=== PATIENT | male | born 1940 | race Caucasian/White ===

== ENCOUNTER → 2017-12-13 | Outpatient (CLI) | payer OTHER ==
[~2017-12-13] MED LIST: AMIO200T42 PO; ASPI-621 PO; ATOR40TA PO; DOCU-131 PO; FURO-92 PO; HYDR-3245 PO; KRIL500C PO; LISI-420 PO; METO25TA35 PO; POTA20TA14 PO; TAMS-11 PO; UBID50TA3 PO; WARF-36 PO
== END | disposition home or self-care (01) ==
LOC: CFH 11:08
PROVIDERS: ATTEND Internal Medicine Cardiovascular Disease
DX: I07.1 Rheumatic tricuspid insufficiency (principal); I34.0 Nonrheumatic mitral (valve) insufficiency
CPT/HCPCS: 93306

== ENCOUNTER 2019-01-02 09:30 | Outpatient (CLI) | payer OTHER | END 2019-01-02 23:59 | disposition home or self-care (01) | LOC: CFH 09:30 | PROVIDERS: ATTEND Internal Medicine Cardiovascular Disease | DX: I08.3 Combined rheumatic disorders of mitral, aortic and tricuspid valves (principal); I10 Essential (primary) hypertension; E78.5 Hyperlipidemia, unspecified | CPT/HCPCS: 93306 ==

== ENCOUNTER 2019-10-09 07:17 | Emergency (ER) | payer OTHER ==
[~2019-10-09] VITALS: Ht 167.6 cm; Wt 77.7 kg
[~2019-10-09 07:17] MED LIST changes: -ASPI-621 PO; +ASPI81TA45 PO
--- NOTE | 2019-10-09 07:35 | NUR ---
pt ambulated back to room with a smooth and steady gait, walked to and from restroom to collect urine sample. pt changed into gown, standing in room, pt P/W/D, states "standing is more comfortable", VSS, RESP WNL, speaking in FCS no SOB noted. WCTM.
--- NOTE | 2019-10-09 08:30 | NUR ---
Late Entry: Pt NAD, resting in gurney, call light within reach, P/W/D, RESP WNL, speakin FCS no SOB noted. Waiting for lab results. WCTM.
[2019-10-09 09:01] LABS: MICROSCOPIC AUTO
[2019-10-09 09:02] LABS: CULTURE INDICATED? NO
[2019-10-09 09:05] LABS: BASOPHILS # (AUTO) 0.02 x10^3/uL (0-0.1); BASOPHILS % (AUTO) 0 % (0-1); EOSINOPHILS # (AUTO) 0.03 x10^3/uL (0-0.4); EOSINOPHILS % (AUTO) 0 % (1-7); LYMPHOCYTES # (AUTO) 1.07 x10^3/uL (1-3.4); LYMPHOCYTES % (AUTO) 12 % (22-44); MD NO; MEAN CORPUSCULAR HEMOGLOBIN 32.8 pg (27.5-34.5); MEAN CORPUSCULAR HGB CONC 33.8 g/dL (33.2-36.2); MEAN CORPUSCULAR VOLUME 96.9 fL (81-97); MEAN PLATELET VOLUME 9.4 fL (7.4-10.4); MONOCYTES # (AUTO) 0.69 x10^3/uL (0.2-0.8); MONOCYTES % (AUTO) 8 % (2-9); NEUTROPHILS # (AUTO) 7.06 x10^3/uL (1.8-6.8); NEUTROPHILS % (AUTO) 80 % (42-75); PLATELET COUNT 179 x10^3/uL (130-400); RED BLOOD COUNT 5.11 x10^6/uL (4.38-5.82); RED CELL DISTRIBUTION WIDTH 13.7 % (9.4-14.8)
[2019-10-09 09:12] LABS: ALBUMIN 4.4 g/dL (3.4-5.0); ANION GAP 5 mmol/L (5-15); CALCIUM 9.6 mg/dL (8.5-10.1); CHLORIDE 109 mmol/L (98-107); CREATININE 1.36 mg/dL (0.7-1.3)
--- NOTE | 2019-10-09 09:44 | NUR ---
Patient given discharge instructions and they have confirmed that they understand the instructions. Patient ambulatory with steady gait. NAD, P/W/D, FCS no SOB. Denies additional questions at this time.
[2019-10-09 09:46] VITALS: BP 142/62
== END 2019-10-09 09:48 | disposition home or self-care (01) ==
LOC: ED 08:55
DX: N40.1 Benign prostatic hyperplasia with lower urinary tract symptoms (principal); R33.8 Other retention of urine; R10.9 Unspecified abdominal pain; I10 Essential (primary) hypertension
CPT/HCPCS: 36415; 51702; 80048; 81001; 82040; 85025; 99284

== ENCOUNTER → 2019-10-24 | Outpatient (CLI) | payer OTHER ==
[~2019-10-24] MED LIST changes: +OMNIPAQUE 350 MG/ML, 150 ML BOTTLE ONE
== END | disposition home or self-care (01) ==
LOC: CFH 12:33
PROVIDERS: ATTEND Physician Assistant Surgical
DX: N40.0 Benign prostatic hyperplasia without lower urinary tract symptoms (principal); R31.21 Asymptomatic microscopic hematuria
CPT/HCPCS: 74178; Q9967

== ENCOUNTER → 2020-02-26 | Outpatient (CLI) | payer OTHER ==
[~2020-02-26] MED LIST changes: -OMNIPAQUE 350 MG/ML, 150 ML BOTTLE ONE
== END | disposition home or self-care (01) ==
LOC: CFH 10:42
PROVIDERS: ATTEND Internal Medicine Cardiovascular Disease
DX: I08.8 Other rheumatic multiple valve diseases (principal)
CPT/HCPCS: 93306

== ENCOUNTER → 2020-03-23 | Outpatient (CLI) | payer OTHER ==
[2020-03-23 12:11] LABS: MICROSCOPIC NOT IND
[2020-03-23 12:14] LABS: BASOPHILS % (AUTO) 1 % (0-1); EOSINOPHILS % (AUTO) 1 % (1-7); LYMPHOCYTES % (AUTO) 25 % (22-44); MEAN CORPUSCULAR HGB CONC 33.1 g/dL (33.2-36.2); MEAN PLATELET VOLUME 9.4 fL (7.4-10.4); MONOCYTES % (AUTO) 9 % (2-9); NEUTROPHILS % (AUTO) 64 % (42-75); PLATELET COUNT 172 x10^3/uL (130-400); RED BLOOD COUNT 5.09 x10^6/uL (4.38-5.82); RED CELL DISTRIBUTION WIDTH 13.8 % (9.4-14.8)
[2020-03-23 12:16] LABS: MD NO
[2020-03-23 12:20] LABS: PROTHROMBIN TIME 10.3 Seconds (9.6-11.5)
[2020-03-23 12:23] LABS: ALBUMIN 3.9 g/dL (3.4-5.0); ANION GAP 2 mmol/L (5-15); CALCIUM 9.4 mg/dL (8.5-10.1); CHLORIDE 108 mmol/L (98-107)
[2020-03-23 12:29] LABS: ALANINE AMINOTRANSFERASE 41 U/L (12-78); ALKALINE PHOSPHATASE 57 U/L (45-117); BILIRUBIN,TOTAL 0.7 mg/dL (0.2-1.0); CREATININE 1.25 mg/dL (0.7-1.3); TOTAL PROTEIN 7.6 g/dL (6.4-8.2)
== END | disposition home or self-care (01) ==
LOC: STAR 10:14
PROVIDERS: ATTEND Urology
DX: Z01.818 Encounter for other preprocedural examination (principal); N40.1 Benign prostatic hyperplasia with lower urinary tract symptoms; R39.15 Urgency of urination
CPT/HCPCS: 36415; 80053; 81003; 85025; 85610; 85730; 87086; 93005

== ENCOUNTER 2020-04-01 12:26 | Inpatient (IN) | payer MEDICARE, OTHER ==
[~2020-04-01] VITALS: Ht 167.6 cm; Wt 86.3 kg
[2020-04-01] MEDS ORDERED: CHLORHEXIDINE 15 ML UDC MM ONE (13:00)
[2020-04-01] MEDS ORDERED: LACTATED RINGERS 1,000 ML IV SCH (13:00)
[2020-04-01] MEDS ORDERED: BUPIVACAINE/PF 0.25% ONE (13:39)
[2020-04-01] MEDS ORDERED: EPINEPHRINE 1 MG/ML, 1ML ONE (13:39)
[2020-04-01] MEDS ORDERED: OPIUM/BELLADONNA SUPP.RECT 16.2-60 MG ONE (13:39)
[2020-04-01] MEDS ORDERED: FENTANYL PF 100 MCG/2ML ONE ×4 (13:43→18:38)
[2020-04-01] MEDS ORDERED: OXYcodone 5 MG/5 ML ORAL.SOL UDC PO PRN (16:00)
[2020-04-01] MEDS ORDERED: HYDROmorphone 1 MG/ML, 1ML INJ IVPush PRN (16:00)
[2020-04-01] MEDS ORDERED: HYDROcodone/APAP 7.5-325MG/15ML UDC PO PRN (16:00)
[2020-04-01] MEDS ORDERED: PROMETHAZINE 25 MG/ML, 1ML IVPush PRN (16:00)
[2020-04-01] MEDS ORDERED: MEPERIDINE/PF 25MG/0.5ML IVPush PRN (16:00)
[2020-04-01] MEDS ORDERED: FUROSEMIDE 20 MG/2 ML ONE (16:44)
[2020-04-01] MEDS ORDERED: SUCCINYLCHOLINE 20 MG/ML, 10ML ONE (17:37)
[2020-04-01] MEDS ORDERED: ROCURONIUM 10MG/ML,5ML ONE (17:37)
[2020-04-01] MEDS ORDERED: NEOSTIGMINE 1 MG/ML, 10ML ONE (17:37)
[2020-04-01] MEDS ORDERED: PROPOFOL 10 MG/ML, 20ML ONE (17:37)
[2020-04-01] MEDS ORDERED: GLYCOPYRROLATE 0.2MG/1ML, 5ML ONE (17:37)
[2020-04-01] MEDS ORDERED: ONDANSETRON 2MG/ML, 2ML ONE (17:37)
[2020-04-01] MEDS ORDERED: DEXAMETHASONE 4 MG/ML, 1ML ONE (17:37)
[2020-04-01] MEDS ORDERED: CEFAZOLIN 1,000 MG ONE (17:37)
[2020-04-01] MEDS ORDERED: ACETAMINOPHEN 650 MG/20.3 ML UDC ONE (18:28)
[2020-04-01] MEDS ORDERED: OXYcodone 5 MG/5 ML ORAL.SOL UDC ONE (18:28)
[2020-04-01] MEDS: FENTANYL PF 100 MCG/2ML IV PRN ×4 (18:30→19:20)
[2020-04-01] MEDS ORDERED: MIDAZOLAM 1 MG/ML, 2ML ONE (18:38)
[2020-04-01] MEDS ORDERED: MIDAZOLAM 1 MG/ML, 2ML IVPush ONE (19:30)
[2020-04-01] MEDS ORDERED: ACETAMINOPHEN 650 MG/20.3 ML UDC PO PRN (20:00)
[2020-04-01] MEDS ORDERED: ONDANSETRON 2MG/ML, 2ML IV PRN (21:30)
[2020-04-01] MEDS ORDERED: OXYcodone IR 5MG TABLET PO PRN (22:00)
[2020-04-01] MEDS: D5%-0.45NACL+KCL 20MEQ 1,000 ML IV SCH (22:23)
[2020-04-02 00:18] VITALS: BP 133/71
[2020-04-02] MEDS ORDERED: ACETAMINOPHEN 500 MG TABLET PO SCH (02:00)
[2020-04-02] MEDS: ACETAMINOPHEN 500 MG TABLET PO SCH ×2 (02:18→09:33)
[2020-04-02 04:01] VITALS: BP 124/62
[2020-04-02] MEDS: D5%-0.45NACL+KCL 20MEQ 1,000 ML IV SCH ×2 (05:30→11:20)
[2020-04-02 06:47] LABS: ANION GAP 7 mmol/L (5-15); CALCIUM 9.2 mg/dL (8.5-10.1); CHLORIDE 107 mmol/L (98-107)
[2020-04-02 06:50] LABS: CREATININE 1.47 mg/dL (0.7-1.3)
[2020-04-02 07:48] VITALS: BP 125/67
[2020-04-02] MEDS ORDERED: LISINOPRIL 20 MG TABLET PO SCH (09:00)
[2020-04-02] MEDS ORDERED: METOPROLOL TARTRATE 25 MG TAB PO SCH (09:00)
[2020-04-02] MEDS ORDERED: DOCU-131 PO (10:41)
[2020-04-02] MEDS ORDERED: HYDR-3240 PO (12:32)
[2020-04-02 13:40] VITALS: BP 134/70
== END 2020-04-02 14:05 | disposition home or self-care (01) | DRG 707 ==
LOC: OUT 12:26 → 3WST 20:00 → OUT 21:53 → 3WST 21:54 → DCLOUNGE 04-02 13:43
PROVIDERS: ADMIT Urology; ATTEND Urology
PROC: 8E0W4CZ Robotic Assisted Procedure of Trunk Region, Percutaneous Endoscopic Approach (ICD-10-PCS; 2020-04-01)
PROC: 0VT04ZZ Resection of Prostate, Percutaneous Endoscopic Approach (ICD-10-PCS; principal; 2020-04-01 14:00)
DX: N40.1 Benign prostatic hyperplasia with lower urinary tract symptoms (principal); N13.8 Other obstructive and reflux uropathy
CPT/HCPCS: 36415; 80048; 85014; 85018; 86850; 86900; 87635; 88309; G0378; J0171; J0690; J1100; J2405; J2704; J2710; J3010; C1760; J0330; J1940; J3480; J7120

== ENCOUNTER 2020-04-08 07:34 | Outpatient (CLI) | payer MEDICARE, OTHER ==
[~2020-04-08 07:34] MED LIST changes: +HYDR-3240 PO
== END 2020-04-08 23:59 | disposition home or self-care (01) ==
LOC: RAD 07:34
PROVIDERS: ATTEND Urology
DX: N40.1 Benign prostatic hyperplasia with lower urinary tract symptoms (principal); N32.89 Other specified disorders of bladder; Z98.890 Other specified postprocedural states; Z72.89 Other problems related to lifestyle; Z87.891 Personal history of nicotine dependence
CPT/HCPCS: 51600; 74430; Q9958